=== PATIENT | female | born 1990 | race Two or more races ===

== ENCOUNTER → 2025-01-01 | Outpatient (CLI) | payer MEDICAID, SELFPAY ==
--- NOTE | 2025-01-01 13:30 | XR_ITS ---
Examination: MRI right ankle, without contrast Date and time of exam: January 01, 2025 1303 hours INDICATIONS: Ankle pain joint clicking instability swelling beginning 18 months ago Technique: Multiple axial sagittal and coronal images of the right ankle have been obtained with the Siemens high-resolution 1.5 Samira MRI scanner. Images obtained include T2-weighted fat-suppressed sagittal sections, TR 3500, TE 46, T2 weighted coronal fat suppressed images, TR 3050, TE 84, T2-weighted transverse fat suppressed images, TR 3260, TE 63, proton density transverse images, TR 4720 TE 46, and T1 weighted coronal images, TR 560, TE 13. 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
== END | disposition home or self-care (01) ==
LOC: SMRI 12:52
PROVIDERS: Referring Provider Physician Assistant; Visit Provider Physician Assistant
DX: M12.28 Villonodular synovitis (pigmented), other specified site (principal); S93.491A Sprain of other ligament of right ankle, initial encounter; X58.XXXA Exposure to other specified factors, initial encounter; M19.071 Primary osteoarthritis, right ankle and foot; M25.571 Pain in right ankle and joints of right foot
CPT/HCPCS: 73721